=== PATIENT | female | born 1985 | race American Indian/Alaskan Native ===

== ENCOUNTER 2016-12-21 10:30 | Day surgery (SDC) | payer MEDICAID ==
--- NOTE | 2016-12-20 10:25 | Anesthesia Consultation ---
Anesthesia Consult and Med Hx Date of service: 12/20/16 - Airway Anesthetic Teeth Evaluation: Good ROM Head & Neck: Adequate Mental/Hyoid Distance: Adequate Mallampati Class: Class II Intubation Access Assessment: Probably Good - Pulmonary Exam CTA: Yes - Cardiac Exam Cardiac Exam: RRR - Pre-Operative Health Status ASA Pre-Surgery Classification: ASA2 Proposed Anesthetic Plan: General - Pre-Anesthesia Comment Pre-Anesthesia Comments: Pt is seeing neurology for staring spells, it only lasts for a few seconds, denies of any tongue bite, on antiseizure medications - Pulmonary Hx Smoking: No Hx Asthma: No Hx Sleep Apnea: No - Cardiovascular System Hx Hypertension: Yes (x 2-3 mos) Hx Heart Attack/AMI: No - Central Nervous System Hx Seizures: Yes (has staring episodes, seeing Neuro (notes attached) ? seizures , ) CVA: No Hx Psychiatric Problems: No - Gastrointestinal Hx Gastroesophageal Reflux Disease: No - Endocrine Hx Renal Disease: No Hx Liver Disease: No Hx Non-Insulin Dependent Diabetes: No - Hematic Hx Anemia: Yes Hx Sickle Cell Disease: Yes (Trait only) - Other Systems Hx Cancer: No Hx Obesity: Yes - Additional Comments Anesthesia Medical History Comments: PONV, NAC
[2016-12-20 11:14] LABS: Hematocrit 34.2 % (30.3-42.9); Hemoglobin 10.7 gm/dl (10.1-14.3); Mean Corpuscular HGB Conc 31 % (30-34); Red Blood Count 5.84 M/mm3 (3.65-5.03); White Blood Count 5.3 K/mm3 (4.5-11.0)
[2016-12-20 11:15] LABS: Mean Corpuscular Hemoglobin 18 pg (28-32); Mean Corpuscular Volume 59 fl (79-97)
[2016-12-20 11:56] LABS: Platelet Count 254 K/mm3 (140-440)
[~2016-12-21 10:30] MED LIST: DILAUDID ONE; LACTATED RINGERS 1,000 ML IV SCH; PEPCID PO NR; TRANSDERM-SCOP TD NR; VERSED IV NR; ZOFRAN IV PRN
[2016-12-21] MEDS ORDERED: ANCEF/STERILE WATER 2 GM/20 ML 2 GM/20 ML SYRINGE IV ONE (11:13)
[2016-12-21] MEDS ORDERED: XYLOCAINE MPF 2% ONE (12:45)
[2016-12-21] MEDS ORDERED: SUBLIMAZE ONE (12:45)
[2016-12-21] MEDS ORDERED: DIPRIVAN 10 MG/ML IV ONE (12:46)
[2016-12-21] MEDS ORDERED: TORADOL ONE (12:47)
[2016-12-21] MEDS ORDERED: ZOFRAN ONE (12:47)
--- NOTE | 2016-12-21 13:15 | Anesthesia Day of Surgery ---
Anesthesia Day of Surgery - Day of Surgery Patient Examined: Yes Patient H&P Reviewed: Yes Patient is NPO: Yes
[2016-12-21] MEDS ORDERED: DECADRON ONE (13:24)
[2016-12-21] MEDS ORDERED: NACL 0.9% IR ONE (13:36)
[2016-12-21] MEDS: DILAUDID IV PRN ×3 (14:05→14:25)
[2016-12-21] MEDS ORDERED: NACL 0.9% 1000 ML 1,000 ML ONE (14:11)
--- NOTE | 2016-12-21 14:32 | Post Anesthesia Evaluation ---
- Post Anesthesia Evaluation Patient Participated: Yes Airway Patent: Yes Stable Respiratory Function: Yes Nausea/Vomiting: No Temp > 96.8F: Yes Pain Manageable: Yes Adequeate Hydration: Yes Anesthesia Complications: No Block Receding Appropriately: Not Applicable Patient on Ventilator: No
--- NOTE | 2016-12-21 14:35 | Short Stay Summary ---
Short Stay Documentation Date of service: 12/21/16 - History H&P: obtained from office Past Medical History: hypertension Past Surgical History: (x 3) Social history: single - Allergies and Medications Current Medications: Allergies No Known Allergies Allergy (Unverified 12/16/16 09:55) Home Medications Medication Instructions Recorded Confirmed Last Taken Type Ferrous Sulfate [Feosol] 325 mg PO BID 12/16/16 12/16/16 Unknown History Lisinopril [Zestril] 5 mg PO QDAY 12/16/16 12/16/16 Unknown History levETIRAcetam [Roweepra] 500 mg PO BID 12/16/16 12/16/16 Unknown History Phentermine HCl 37.5 mg PO QAM 12/20/16 12/20/16 12/13/16 History Active Medications Hydromorphone HCl (Dilaudid) 0.25 mg IV Q10MIN PRN PRN Reason: Pain, Moderate (4-6) Stop: 12/24/16 13:53 Lactated Ringer's (Lactated Ringers) 1,000 mls @ 100 mls/hr IV DIRECT MADONNA Midazolam HCl (Versed) 2 mg IV PREOP NR Stop: 12/21/16 23:59 Ondansetron HCl (Zofran) 4 mg IV ONCE PRN PRN Reason: Nausea And Vomiting Stop: 12/21/16 13:53 Scopolamine (Transderm-Scop) 1 each TD PREOP NR Stop: 12/23/16 10:59 - Physical exam General appearance: no acute distress Integumentary: no rash, no growths HEENT: Atraumatic Lungs: Clear to auscultation Breasts: deferred Heart: Regular rate, Normal S1, Normal S2 Gastrointestinal: normal, normoactive bowel sounds, obese Female Genitourinary: normal Rectal Exam: deferred Extremities: No edema - Brief post op/procedure progress note Date of procedure: 12/21/16 Pre-op diagnosis: Dysfunctional uterine bleeding Post-op diagnosis: same Procedure: Novasure Endometrial ablation Anesthesia: MAC Findings: normal uterine cavity Surgeon: CHRISTOPHER HOYOS Estimated blood loss: minimal Pathology: none Condition: stable - Hospital course Hospital course: unremarkable - Disposition Condition at discharge: Good Disposition: DISCHARGED TO HOME OR SELFCARE Short Stay Discharge Plan Activity: advance as tolerated Weight Bearing Status: Weight Bear as Tolerated Diet: regular Special Instructions: other (nothing in the vagina) Follow up with: CHRISTOPHER HOYOS MD [Staff Physician] - 14 Days Prescriptions: HYDROmorphone [Dilaudid] 2 mg PO Q6HR #15 tablet Ibuprofen [Motrin] 800 mg PO Q8HR PRN #30 tablet PRN Reason: Pain
[2016-12-21 14:49] VITALS: BP 152/85
[2016-12-21] MEDS ORDERED: ANCEF/STERILE WATER 2 GM/20 ML IV NR (16:00)
--- NOTE | 2016-12-21 20:19 | Operative Report ---
PREOPERATIVE DIAGNOSIS: Dysfunctional Uterine Bleeding POSTOPERATIVE DIAGNOSIS: Same PROCEDURE: NovaSure endometrial ablation. SURGEON: Maria Guadalupe Broussard MD ANESTHESIA: LMA. IV FLUIDS: 800 mL. ESTIMATED BLOOD LOSS: None. COMPLICATIONS: None. SPECIMENS: None. DESCRIPTION OF PROCEDURE: The patient was taken to the OR with IV running in place. She was identified as herself. She was given LMA anesthesia without difficulty. She was placed in dorsal lithotomy position and prepped and draped in normal sterile fashion. Attention was turned to the patient's vagina where a speculum was inserted. The cervix was visualized and grasped with a tenaculum. The uterus was sounded to approximately 8 cm in length. The cervix was then gently dilated to approximately 8 mm after which hysteroscopy was performed. There was no obvious pathology in the uterus. The scope was removed and the cervix was dilated some more following which the NovaSure device was placed into the uterus. The length of the uterus was 6 cm, the width was 4.5. The device was used per pattern chain maker supervisor's instructions and the treatment cycle was 47 seconds. At this point, all instruments were removed from the patient's uterus. A final look with the hysteroscope was performed and there was excellent effect taken. At this point, all instruments were removed from the patient's vagina. She was awaken and taken to recovery in stable condition. JOB# [id number] NING/CAROLYN PERAZA
== END 2016-12-21 16:35 | disposition home or self-care (01) ==
LOC: OR 10:30
PROVIDERS: ATTEND Obstetrics & Gynecology
DX: N93.8 Other specified abnormal uterine and vaginal bleeding (principal); I10 Essential (primary) hypertension; D57.3 Sickle-cell trait; E66.9 Obesity, unspecified; Z68.39 Body mass index [BMI] 39.0-39.9, adult
CPT/HCPCS: 36415; 58563; 84703; 85027; A4217; J0690; J1100; J1170; J1885; J2250; J2405; J2704; J3010; J7030; J7120